=== PATIENT | male | born 1985 | race American Indian/Alaskan Native ===

== ENCOUNTER 2022-02-10 15:51 | Emergency (ER) | payer SELFPAY ==
[2022-02-10] MEDS ORDERED: SODIUM CHLORIDE 0.9% 1000 ML 1,000 ML IV ONE (16:12)
[2022-02-10] MEDS ORDERED: methylPREDNISolone Sod Succinate 125 MG/2 ML INJ IV ONE (16:12)
[2022-02-10] MEDS ORDERED: diphenhydrAMINE 50 MG/ML VIAL IV ONE (16:13)
[2022-02-10] MEDS ORDERED: FAMOTIDINE 20 MG/2 ML INJ IV ONE (16:13)
--- NOTE | 2022-02-10 16:17 | Emergency Department Report ---
ED General Adult HPI - General Chief complaint: Allergic Reaction Stated complaint: WASP STING IN EYE ALLERGIC REACTION Time Seen by Provider: 02/10/22 16:10 Source: patient Mode of arrival: Ambulatory Limitations: No Limitations - History of Present Illness Initial comments: The patient presents to the emergency department the chief complaint of a mosq uito bite. Patient states he was bit by a wasp just prior to arrival to the emergency department. Patient states that he was bit on the upper eyelid. Patient complains of having hives. There is no respiratory distress on initial evaluation. Patient is able to speak in full sentences with more than appropriate phonation. Patient denies any chest pain or shortness of breath -: Sudden Severity scale (0 -10): 0 Consistency: constant Improves with: none Worsens with: none Associated Symptoms: denies other symptoms Treatments Prior to Arrival: none - Related Data Previous Rx's Medication Instructions Recorded Last Taken Type Clindamycin [Clindamycin CAP] 300 mg PO Q8H #30 cap 09/14/16 Unknown Rx Ibuprofen [Motrin 800 MG tab] 800 mg PO ONCE #30 tablet 09/14/16 Unknown Rx Ofloxacin [Ocuflox 0.3%] 1 - 2 drop OP Q6HR #1 bottle 09/14/16 Unknown Rx predniSONE [Deltasone] 20 mg PO DAILY #15 tablet 02/10/22 Unknown Rx Allergies Allergy/AdvReac Type Severity Reaction Status Date / Time seafood Allergy Shortness Uncoded 02/10/22 16:01 of Breath ED Review of Systems ROS: Stated complaint: WASP STING IN EYE ALLERGIC REACTION Other details as noted in HPI Comment: All other systems reviewed and negative Constitutional: other (Pruritus). denies: chills, fever Eyes: denies: eye pain, eye discharge, vision change ENT: denies: ear pain, throat pain Respiratory: denies: cough, shortness of breath, wheezing Cardiovascular: denies: chest pain, palpitations Endocrine: no symptoms reported Gastrointestinal: denies: abdominal pain, nausea, diarrhea Genitourinary: denies: urgency, dysuria Musculoskeletal: denies: back pain, joint swelling, arthralgia Skin: denies: rash, lesions Neurological: denies: headache, weakness, paresthesias Psychiatric: denies: anxiety, depression Hematological/Lymphatic: denies: easy bleeding, easy bruising ED Past Medical Hx - Past Medical History Additional medical history: hyperdradentis - Surgical History Additional Surgical History: plates and screws left hip - Medications Home Medications: Home Medications Medication Instructions Recorded Confirmed Last Taken Type Clindamycin [Clindamycin CAP] 300 mg PO Q8H #30 cap 09/14/16 Unknown Rx Ibuprofen [Motrin 800 MG tab] 800 mg PO ONCE #30 tablet 09/14/16 Unknown Rx Ofloxacin [Ocuflox 0.3%] 1 - 2 drop OP Q6HR #1 bottle 09/14/16 Unknown Rx predniSONE [Deltasone] 20 mg PO DAILY #15 tablet 02/10/22 Unknown Rx ED Physical Exam - General Limitations: No Limitations General appearance: alert, in no apparent distress, anxious, other (Patient able to swallow without difficulty. Patient is able to speak in full sentences no issues with phonation) - Head Head exam: Present: atraumatic, normocephalic - Eye Eye exam: Present: normal appearance - ENT ENT exam: Present: mucous membranes moist, other (Swelling to the left upper eyelid) - Neck Neck exam: Present: normal inspection - Respiratory Respiratory exam: Present: normal lung sounds bilaterally. Absent: respiratory distress - Cardiovascular Cardiovascular Exam: Present: regular rate, normal rhythm, other (Erythema to chest wall). Absent: systolic murmur, diastolic murmur, rubs, gallop - GI/Abdominal GI/Abdominal exam: Present: soft, normal bowel sounds. Absent: distended, tenderness - Rectal Rectal exam: Present: deferred - Extremities Exam Extremities exam: Present: normal inspection - Back Exam Back exam: Present: normal inspection - Neurological Exam Neurological exam: Present: alert, oriented X3, CN II-XII intact. Absent: motor sensory deficit - Psychiatric Psychiatric exam: Present: normal affect, normal mood - Skin Skin exam: Present: warm, dry, intact, normal color, urticaria Critical care attestation.: If time is entered above; I have spent that time in minutes in the direct care of this critically ill patient, excluding procedure time. ED Disposition Clinical Impression: Insect sting allergy, current reaction Disposition: 01 HOME / SELF CARE / HOMELESS Is pt being admited?: No Does the pt Need Aspirin: No Condition: Stable Additional Instructions: Return if worse or with difficulty breathing. Referrals: JUAN A REDDING MD [Staff Physician] - 3-5 Days Time of Disposition: 19:16
[2022-02-10 20:32] VITALS: BP 143/79
== END 2022-02-10 20:05 | disposition home or self-care (01) ==
LOC: ED 15:51
DX: Z91.038 Other insect allergy status (principal); Z91.013 Allergy to seafood
CPT/HCPCS: 96361; 96374; 96375; 99282; J1200; J2930; J3490; J7030